=== PATIENT | female | born 1975 | race Caucasian/White ===

== ENCOUNTER 2020-12-19 06:15 | Day surgery (SDC) | payer BC ==
[2020-12-12 13:58] VITALS: BMI 30.9
--- NOTE | 2020-12-18 21:46 | P.HPOB ---
History of Present Illness H&P Date: 12/18/20 Chief Complaint: Menorrhagia with irregular cycle, family planning This is a 45 y.o. female, 2, para 1, who presents for dilation and curettage with hysteroscopy and Novasure endometrial ablation with laparoscopic bilateral tubal ligation for family planning and menorrhagia with irregular cycles. She complains of intermenstrual spotting for the week before and a few days after menses. Her menses are occurring every 3-4 weeks and lasting 3-4 days. They are very heavy and painful. She changes tampons every couple hours and sometimes bleeds through. This has been going on for about 5 years. Ultrasound shows uterus measuring 9.2 x 4.4 x 5.5 cm with endometrium measuring 1 cm with 1.4 cm hypoechoic area within. Her right ovary has a 2.2 cm septated cyst. OB Hx: . History of 1 section and 1 miscarriage Medical Officer Psychiatry Hx: No history of STDs. Social Hx: . Works as dental hygienist. Review of Systems Constitutional: Reports night sweats, Denies chills, Denies fever Eyes: denies blurred vision, denies pain Ears, nose, mouth and throat: Denies headache, Denies sore throat Cardiovascular: Denies chest pain, Denies shortness of breath Respiratory: Denies cough Gastrointestinal: Denies abdominal pain, Denies diarrhea, Denies nausea, Denies vomiting Genitourinary: Reports abnormal vaginal bleeding, Reports dysmenorrhea, Reports menorrhagia Menstruation: Reports cycle < 21 days, Reports cycle variable, Reports menses variable Musculoskeletal: Denies myalgias Integumentary: Denies pruritus, Denies rash Neurological: Denies numbness, Denies weakness Psychiatric: Reports anxiety, Reports depression, Reports insomnia Past Medical History Past Medical History: GERD/Reflux, Skin Disorder Additional Past Medical History / Comment(s): Psoriasis. History of Any Multi-Drug Resistant Organisms: None Reported Past Surgical History: Section Additional Past Surgical History / Comment(s): Section X1. D&C. Past Anesthesia/Blood Transfusion Reactions: No Reported Reaction Past Psychological History: Anxiety, Depression Smoking Status: Former smoker Past Alcohol Use History: Occasional Additional Past Alcohol Use History / Comment(s): Quit smoking in 2009. Past Drug Use History: Marijuana Additional Drug Use History / Comment(s): Rare Marijuana use. Aware no use 24 hrs prior to procedure. - Past Family History Mother Family Medical History: Hypertension Medications and Allergies Home Medications Medication Instructions Recorded Confirmed Type Bupropion (Unknown Dose) 1 tab PO QAM 12/12/20 12/12/20 History Citalopram Hydrobromide 40 mg PO QAM 12/12/20 12/12/20 History [Citalopram HBr] Ibuprofen 600 mg PO Q8H PRN 12/12/20 12/12/20 History Polymyxin B-Trimeth Sulf Ophth 1 drop LEFT EYE Q6HR 12/19/20 12/19/20 History [Polytrim Opthalmic] Allergies Allergy/AdvReac Type Severity Reaction Status Date / Time No Known Allergies Allergy Verified 12/19/20 06:51 Exam Osteopathic Statement: *. No significant issues noted on an osteopathic structural exam other than those noted in the History and Physical/Consult. HEENT: within normal limits Heart: regular rate and rhythm Lungs: clear to auscultation bilaterally Abdomen: soft, non-tender Pelvic: uterus small, anteverted, non-tender Extremities: neg. Jolie's. Assessment and Plan (1) Menorrhagia with irregular cycle Current Visit: No Status: Acute Code(s): N92.1 - EXCESSIVE AND FREQUENT MENSTRUATION WITH IRREGULAR CYCLE SNOMED Code(s): 543901833 (2) Family planning Current Visit: No Status: Acute Code(s): Z30.09 - ENCOUNTER FOR OTH GENERAL CNSL AND ADVICE ON CONTRACEPTION SNOMED Code(s): 700539021 Plan: Proceed with dilatation and curettage with hysteroscopy and Novasure endometrial ablation along with laparoscopic bilateral tubal ligation via fulgaration. I have discussed the risks, benefits, and alternative therapies for the above- mentioned procedure and for both sedation/anesthesia as well as necessary blood products administration, if indicated, as they pertain to this patient. The patient has indicated her understanding and acceptance of the risks and procedures discussed.
[~2020-12-19 06:15] MED LIST: DEXAMETHASONE SOD PHOSPHATE 4 MG/ML 1 ML VIAL IV ONE; LACTATED RINGERS 1,000 ML IV SCH; ONDANSETRON 4 MG/2 ML VIAL IVP ONE; Pre Op ABX Message 1 EACH MISC MISCELLANE ONE
[2020-12-19] MEDS ORDERED: HYDROmorphone 0.5 MG/0.5 ML SYRINGE IVP PRN (07:00)
[2020-12-19] MEDS ORDERED: LIDOCAINE 1% (10MG/ML) FOR IV START INTRADERMA ONE (07:04)
[2020-12-19] MEDS ORDERED: SCOPOLAMINE 1.5MG/72HR PATCH TRANSDERM ONE (07:06)
[2020-12-19] MEDS ORDERED: PROPOFOL 10 MG/ML 20 ML VIAL IV ONE (07:30)
[2020-12-19] MEDS ORDERED: ROCURONIUM 10 MG/ML (5 ML VIAL) IV ONE (07:30)
[2020-12-19] MEDS ORDERED: SUCCINYLCHOLINE CHLORIDE 100 MG/5 ML SYR IV ONE (07:30)
[2020-12-19] MEDS ORDERED: KETOROLAC 15 MG/ML 1 ML VIAL ONE (07:30)
[2020-12-19] MEDS ORDERED: GLYCOPYRROLATE 0.2 MG/ML 2 ML VIAL ONE (07:30)
[2020-12-19] MEDS ORDERED: LIDOCAINE 1% INJ 10MG/ML (20 ML MDV) ONE (07:30)
[2020-12-19] MEDS ORDERED: NEOSTIGMINE 1 MG/ML 10 ML VIAL ONE (07:30)
[2020-12-19] MEDS ORDERED: fentaNYL (PF) 50 MCG/ML 2 ML AMP ONE (07:30)
[2020-12-19] MEDS ORDERED: MIDAZOLAM 2 MG/2 ML VIAL ONE (07:30)
[2020-12-19] MEDS ORDERED: PHENYLEPHRINE-0.9% NACL SYG 1,000 MCG/10 ML SYRINGE ONE (07:30)
[2020-12-19] MEDS ORDERED: BUPIVACAINE (PF) 0.5% 30 ML VIAL SQ ONE (08:12)
--- NOTE | 2020-12-19 08:32 | P.OP ---
Date of Procedure: 12/19/20 Preoperative Diagnosis: Menorrhagia with irregular cycle Family planning Postoperative Diagnosis: Same Procedure(s) Performed: Dilation and curettage with hysteroscopy and NovaSure endometrial ablation Laparoscopic bilateral tubal ligation via fulguration Anesthesia: NAEL Surgeon: Ana Laura Cedillo Estimated Blood Loss (ml): 10 Pathology: other (Endometrial curettings) Condition: stable Disposition: same day Indications for Procedure: This is a 45 y.o. female, 2, para 1, who presents for dilation and curettage with hysteroscopy and Novasure endometrial ablation with laparoscopic bilateral tubal ligation for family planning and menorrhagia with irregular cycles. She complains of intermenstrual spotting for the week before and a few days after menses. Her menses are occurring every 3-4 weeks and lasting 3-4 days. They are very heavy and painful. She changes tampons every couple hours and sometimes bleeds through. This has been going on for about 5 years. Ultrasound shows uterus measuring 9.2 x 4.4 x 5.5 cm with endometrium measuring 1 cm with 1.4 cm hypoechoic area within. Her right ovary has a 2.2 cm septated cyst. Operative Findings: Uterus is mid position, sounded to 11 cm. Cervix is sounded to 4 cm. Upon hysteroscopy, difficult visualization was noted due to menses. Both tubal ostia were visualized. Upon curetting, an irregular contour was noted consistent with possible submucosal fibroids. A moderate amount of endometrial curettings are obtained. On laparoscopy, there is noted to be a fundal fibroid that appeared fairly small. Both tubes and ovaries appeared normal. Appendix was visualized and appears normal. Gallbladder was visualized and appears prominent. Description of Procedure: The patient is taken to the operating room. She is placed in the dorsal lithotomy position after general anesthesia was given. She is prepped and draped in the normal sterile fashion. Bladder is drained with a catheter and then removed. Pelvic exam is performed under anesthesia. Uterus is found to be mid position with no adnexal masses. She is placed in slight Trendelenburg position. A right angle retractor is used to visualize the cervix. The anterior lip of the cervix is grasped with a single-tooth tenaculum. Cervix is sounded to 4 cm. Uterus is sounded to 11 cm. Cervix is gently dilated with Bryan dilators until a hysteroscope could be passed. Hysteroscopy is performed using normal saline. The above noted findings are noted. Next a polyp forceps is introduced. A minimal amount of tissue was obtained. Next medium-sized size sharp curette was placed. A moderate amount of endometrial curettings were obtained. Next NovaSure array was inserted into the endometrial cavity. Length was set at 6.5 cm and width was determined to be to 2.5 cm. Next cavity assessment was completed and passed on the first try. Next NovaSure array was fired at 89 W for 59 seconds. Next the array was removed, inspected and then discarded. Next the hysteroscope was reinserted. Uniform charring was noted. Pictures were taken. Hysteroscope was removed. Next a kroner uterine manipulator is inserted and the balloon is inflated. Single-tooth tenaculum was removed from the anterior lip of the cervix. Minimal bleeding was noted. All other instruments removed from the vagina. Attention is then turned to the abdomen. Gloves are changed. A small stab incision was made with a scalpel in the infraumbilical fold. A towel clip was placed above the umbilicus for retraction. A 5 mm disposable bladeless trocar was then inserted into the peritoneal cavity under direct visualization. Once inside, pneumoperitoneum was achieved with CO2 gas. The insert was removed and the camera was placed. Intraperitoneal placement was confirmed. No bleeding was noted. Next the patient was placed in Trendelenburg position. A small stab incision was made suprapubically and a 5 mm disposable bladeless trocar was inserted into the peritoneal cavity under direct visualization. Once inside pelvic contents were inspected. Next a bipolar Kleppinger instrument was placed through the inferior trocar and the midportion of each tube was brought away from other structures and completely fulgurated on approximate 2-3 cm segment of each tube. Excellent hemostasis was noted. Pictures were taken. Pneumoperitoneum was released after the inferior trocar was removed under direct visualization. The upper trocar was then removed. The skin incisions were then closed with 4-0 Vicryl suture in a subcuticular fashion. Incisions were then injected with quarter percent Marcaine. Approximately 7 mL were used. Next the kroner uterine manipulator was removed. Minimal bleeding was noted. All sponge and needle counts are correct. The patient is then taken to recovery room in stable condition.
[2020-12-19 08:48] VITALS: TEMP 96.8
[2020-12-19 09:33] VITALS: RESP 18
[2020-12-19 09:52] VITALS: BP 137/94; PULSE 93
== END 2020-12-19 10:12 | disposition home or self-care (01) ==
LOC: OR 06:15
PROVIDERS: ATTEND Obstetrics & Gynecology
DX: N92.0 Excessive and frequent menstruation with regular cycle (principal); Z30.2 Encounter for sterilization; N92.6 Irregular menstruation, unspecified; F32.9 Major depressive disorder, single episode, unspecified; F41.9 Anxiety disorder, unspecified; Z87.891 Personal history of nicotine dependence; K21.9 Gastro-esophageal reflux disease without esophagitis; Z79.899 Other long term (current) drug therapy
CPT/HCPCS: 81025; 88305; 58563; 58670; J2250; J1100; J2710; J2405; J2001; J3010; J1885; J2370; J0330; J2704; J1170